=== PATIENT | female | born 1990 | race Caucasian/White ===

== ENCOUNTER 2016-05-18 18:44 | Outpatient (CLI) | payer OTHER ==
[~2016-05-18] VITALS: Ht 175.3 cm; Wt 125.2 kg
[~2016-05-18 18:44] MED LIST: ACET500C5 PO; CEPH-443 PO; PRENAT PO
[2016-05-18 18:47] VITALS: Ht 175.3 cm; Wt 125.2 kg
[2016-05-18 18:52] VITALS: BP 118/74; PULSE 85; RESP 18
--- NOTE | 2016-05-18 22:31 | TRIAGE ---
OB Triage Datetime Report Generated by CPN: 05/18/2016 22:31 Datetime: 05/18/2016 20:38 Pain Presence: None/Denies Pain Assessment Comments: PT. DENIES PAIN AT THIS TIME, ONLY COMPLAINS OF SLIGHT PELVIC PRESSURE Datetime: 05/18/2016 20:30 Labor Evaluation Frequency: OCCASIONAL Monitor Mode: External Duration (sec)2399: 60-80 Pattern: Normal: <= 5 Contractions in 10 Minutes Heart Rate FHR Baseline Rate: 145 Monitor Mode: External US FHR Baseline Changes: No Baseline Change Variability: Moderate 6-25 bpm Accelerations: 15X15 Decelerations: None Category: Category I Datetime: 05/18/2016 20:28 Stage of : OB Triage Datetime: 05/18/2016 19:30 Stage of : OB Triage Labor Evaluation Frequency: OCC Monitor Mode: External Duration (sec)2399: 90-100 Pattern: Normal: <= 5 Contractions in 10 Minutes Resting [place]one [place]: Relaxed Heart Rate FHR Baseline Rate: 140 Monitor Mode: External US Variability: Moderate 6-25 bpm Accelerations: 15X15 Decelerations: None Category: Category I Datetime: 05/18/2016 19:23 Vaginal Exam Dilatation (cms): 0.0 Effacement (%): 50 Station: -3 Exam By: MARILY Blanchard Membrane Status: Intact Vaginal Bleeding: None Cervix, Consistency: Soft Cervix, Position: Posterior Datetime: 05/18/2016 18:52 Stage of : OB Triage Assessment Type: Triage Maternal Assessment Level of Consciousness: Fully Conscious DTR's/Clonus: DTRs 2+; No Clonus Headache: Denies Blurred Vision: No Respiratory Effort: Unlabored; Regular Rhythm; Equal Expansion Breath Sounds, Left: Clear and Equal Breath Sounds, Right: Clear and Equal Nausea/Vomiting: Denies RUQ Epigastric Pain: Denies Facial Edema: None Temperature Route: Axillary Fall Risk Assessment History of Falling: (0) No Secondary Diagnosis: (0) No Ambulatory Aid: (0) Bedrest/Nurse Assist IV Therapy: (0) No Gait: (0) Normal/Bedrest/Immobile Mental Status: (0) Oriented to Own Ability Fall Score: 0 Fall Risk Score Definition: No Risk: No action required Labor Evaluation Frequency: 0 Monitor Mode: External Resting [place]one [place]: Relaxed Heart Rate FHR Baseline Rate: 145 Monitor Mode: External US Variability: Moderate 6-25 bpm Decelerations: None Category: Category I Pain Assessment Pain Scale: 6 Pain Presence: Intermittent Pain Type: Cramping; Contraction Pain Location: Abdomen Pain Goal: 3 Pain Relief Measures: Comfort Measures Datetime: 05/18/2016 18:50 Time of Arrival: 05/18/2016 18:39 EGA: 36.6 Arrived By: Ambulatory Arrived From: Home Chief Complaint: C/O UC'S SINCE 2PM TODAY. DENIES BLEEDING OR LEAKING OF FLUID Movement: Present Contractions: Irregular Rupture of Membranes: Denies Vaginal Bleeding: None Vaginal Discharge: Denies Recent Sexual Intercouse: Denies Abdominal Trauma: Not Applicable Patient Complaints: Contractions Time Provider Notified: 05/18/2016 20:28 Provider Notified: Initial Plan: MONITOR, VE
--- NOTE | 2016-05-19 02:31 | PN ---
Date/Time of Note Date/Time of Note DATE: 05/19/16 TIME: 02:28 OB Subjective Subjective Subjective 25 Year-old [id number] with SIUP at 36 6/7 wks presents with a chief complaint of UCS. She has been receiving her care with Dr. Caldwell. She states good movement. She denies nausea, vomiting, shortness of breath, chest pain, and abdominal pain between contractions, headache, visual changes, vaginal bleeding or LOF. OB Objective Objective Objective Physical Exam: General: Patient appears well, alert and oriented, NAD, appropriate mood and affect ABD: gravid, soft, non-tender. Back: No CVA tenderness (B/L) LE: No clubbing, cyanosis, edema, thigh or calf tenderness bilaterally FHT: 140 bpm , moderate variability with acceleration, no deceleration-category I Contractions: Occasional SVE: close/50/-3/ceph/intact membrane, no cx changes in repeat exam OB Assessment/Plan Other plan: 18 Year-old G1 with SIUP at 40 2/7 wks - FHR: No sign of metabolic acidosis- Category I - Continuous EFM, toco - Contractions: Occasional - Reactive NST. BPP: 10/10 - Symptoms and sign of labor, preeclampsia, kick count discussed with patient, she voiced understanding. All of her questions answered. Patient was discharged home in stable condition with the appropriate discharge instructions provided. I would like patient to have close follow-up with her primary Ob or outpatient clinic in 1-2 days or return to the ER for worsening symptoms or any other urgent concerns. MARCEL GALLOWAY May 19, 2016 02:31
== END 2016-05-18 20:45 | disposition home or self-care (01) ==
LOC: OBT 18:44 → L-D 18:46 → OBT 20:45
PROVIDERS: ATTEND Obstetrics & Gynecology
DX: O62.9 Abnormality of forces of labor, unspecified (principal); Z3A.36 36 weeks gestation of pregnancy
CPT/HCPCS: G0463

== ENCOUNTER 2016-06-12 10:58 | Inpatient (IN) | payer OTHER ==
[~2016-06-12] VITALS: Ht 175.3 cm; Wt 127.7 kg
[~2016-06-12 10:58] MED LIST changes: -ACET500C5 PO
[2016-06-12 11:11] VITALS: Ht 175.3 cm; Wt 127.7 kg
[2016-06-12 11:12] VITALS: BP 131/70; PULSE 71; RESP 18
[2016-06-12] MEDS ORDERED: LACTATED RINGER'S 1,000 ML IV SCH (11:25)
[2016-06-12] MEDS ORDERED: IBUPROFEN 600 MG TAB PO PRN (11:30)
[2016-06-12] MEDS ORDERED: OXYTOCIN 30 UNITS/LR 500 ML IV PRN (11:30)
[2016-06-12] MEDS ORDERED: CARBOPROST 250 MCG INJ IM PRN (11:30)
[2016-06-12] MEDS ORDERED: BUTORPHANOL 2 MG INJ IV PRN (11:30)
[2016-06-12] MEDS ORDERED: LACTATED RINGER'S 1,000 ML IV PRN (11:30)
[2016-06-12] MEDS ORDERED: MISOPROSTOL 200 MCG TAB PR PRN (11:30)
[2016-06-12] MEDS ORDERED: LIDOCAINE 1% (MPF) 30 ML INJ INJ PRN (11:30)
[2016-06-12] MEDS ORDERED: OXYTOCIN 30 UNITS/LR 500 ML IV SCH ×3 (11:30)
[2016-06-12] MEDS ORDERED: METHYLERGONOVINE 0.2 MG INJ IM PRN (11:30)
[2016-06-12 11:50] LABS: ADD SCAN DIFF NO
[2016-06-12 12:16] LABS: INR 0.91; PROTIME 12.3 Sec (12.2-14.2)
[2016-06-12 12:17] LABS: PARTIAL THROMBOPLASTIN TIME 31.9 Sec (25.0-35.0)
[2016-06-12 12:21] LABS: BASOPHILS % 0.4 % (0.0-2.0); EOSINOPHILS # 0.1 10^3/ul (0.0-0.5); EOSINOPHILS % 0.5 % (0.0-7.0); HEMATOCRIT 36.7 % (37.0-47.0); HEMOGLOBIN 12.1 g/dl (12.0-16.0); LYMPHOCYTES # 2.2 10^3/ul (0.8-2.9); LYMPHOCYTES % 21.4 % (15.0-51.0); MEAN PLATELET VOLUME 10.5 fl (7.4-10.4); MONOCYTE # 0.6 10^3/ul (0.3-0.9); NEUTROPHIL # 7.3 10^3/ul (1.6-7.5); NEUTROPHILS % 70.5 % (39.0-77.0); PLATELET COUNT 260 10^3/UL (140-415); RED BLOOD COUNT 4.32 10^6/ul (4.20-5.40); RED CELL DISTRIBUTION WIDTH 13.5 % (11.5-14.5); WHITE BLOOD COUNT 10.3 10^3/ul (4.8-10.8)
[2016-06-12] MEDS ORDERED: FENTAnyl 2MCG/ML-ROPIV 0.2% 100 ML ONE (12:47)
[2016-06-12] MEDS ORDERED: FENTAnyl 2MCG/ML-ROPIV 0.2% 100 ML BAG EPI SCH (14:30)
[2016-06-12] MEDS ORDERED: DIPHENHYDRAMINE 50 MG INJ IV PRN (14:30)
[2016-06-12] MEDS ORDERED: ONDANSETRON 4 MG INJ IV PRN ×2 (14:30→17:30)
[2016-06-12] MEDS ORDERED: NALOXONE (0.4 MG/ML) INJ IV PRN (14:30)
--- NOTE | 2016-06-12 16:07 | LDN ---
Date/Time of Note Date/Time of Note DATE: 06/12/16 TIME: 16:00 Delivery Summary OF A BABY BOY FROM [place] POSITION WITH NUCHAL CORD TIGHT AROUND THE BABY,S NECK#2 THICK MECONIUM COVERED BABY,S BODY PLACENTA SPONTANEOUS EXPULSION COVERED WITH THICK MECONIUM ,SEND TO PATHOLOGY , NO PERINEAL LACERATION, BLOOD LOSS 200ML Placenta Delivered: Spontaneously Meconium: Thick Perineum intact?: Yes Anesthesia type: Epidural Sponge & Needle done & correct: Yes All needle counts correct: Yes Any foreign bodies felt in the: No Problems: Infant Delivery Information Sex Infant Sex: male Apgars 1 Minute: 8 5 Minute: 9 Suctioning Nose & mouth suctioned at primo: Yes Delee suction performed: Yes Umbilical Cord Umbilical cord with: 3 Vessels Cord presentations: nuchal cord Cord Blood was obtained: Yes RANDELL PADILLA MD Jun 12, 2016 16:07
[2016-06-12] MEDS: OXYTOCIN 30 UNITS/LR 500 ML IV SCH ×2 (17:29→20:07)
[2016-06-12] MEDS ORDERED: DIBUCAINE 1% 30 GM OINT PR PRN (17:30)
[2016-06-12] MEDS ORDERED: BENZOCAINE 20% 56 ML SPRAY TOP PRN (17:30)
[2016-06-12] MEDS ORDERED: LANOLIN 7 GM TUBE TOP PRN (17:30)
[2016-06-12] MEDS ORDERED: ACETAMINOPHEN/CODEINE #3 TAB PO PRN ×2 (17:30)
[2016-06-12] MEDS ORDERED: ACETAMINOPHEN 325 MG TAB PO PRN (17:30)
[2016-06-12] MEDS ORDERED: WITCH HAZEL/GLYCERIN PAD PR PRN (17:30)
[2016-06-12] MEDS ORDERED: OXYCODONE/ASPIRIN (4.88/325) TAB PO PRN ×2 (17:30)
[2016-06-12 17:45] VITALS: BP 122/61; RESP 17
[2016-06-12 18:15] VITALS: BP 118/62; PULSE 66; RESP 18
[2016-06-12] MEDS: IBUPROFEN 600 MG TAB PO SCH (18:23)
[2016-06-12 19:40] VITALS: BP 123/57; PULSE 76; RESP 18
[2016-06-12] MEDS: SENNA/DOCUSATE NA (8.6MG/50MG) TAB PO SCH (20:08)
[2016-06-13] MEDS: IBUPROFEN 600 MG TAB PO SCH ×4 (00:02→17:29)
[2016-06-13 00:05] VITALS: BP 110/56; PULSE 78; RESP 18
[2016-06-13 04:20] VITALS: BP 106/55; RESP 44
[2016-06-13 07:57] LABS: ADD SCAN DIFF NO
[2016-06-13 08:02] LABS: BASOPHILS % 0.4 % (0.0-2.0); EOSINOPHILS # 0.1 10^3/ul (0.0-0.5); EOSINOPHILS % 0.7 % (0.0-7.0); HEMOGLOBIN 11.3 g/dl (12.0-16.0); LYMPHOCYTES # 2.6 10^3/ul (0.8-2.9); MEAN CORPUSCULAR HGB CONC 34.4 g/dl (32.0-37.0); MEAN CORPUSCULAR VOLUME 84.4 fl (82.0-101.0); MONOCYTE # 0.8 10^3/ul (0.3-0.9); MONOCYTES % 7.9 % (0.0-11.0); NEUTROPHIL # 6.2 10^3/ul (1.6-7.5); PLATELET COUNT 240 10^3/UL (140-440); RED BLOOD COUNT 3.91 10^6/ul (4.20-5.40); RED CELL DISTRIBUTION WIDTH 14.1 % (11.5-14.5); WHITE BLOOD COUNT 9.6 10^3/ul (4.8-10.8)
[2016-06-13 08:20] VITALS: BP 123/53; PULSE 68; RESP 18
[2016-06-13] MEDS ORDERED: INFLUENZA VIRUS VACCINE 0.5 ML (DISPENSING) IM* ONE (09:00)
[2016-06-13] MEDS: SENNA/DOCUSATE NA (8.6MG/50MG) TAB PO SCH ×2 (09:39→21:00)
--- NOTE | 2016-06-13 12:04 | HP ---
Date/Time of Note Date/Time of Note DATE: 06/13/16 TIME: 11:51 OB - History Hx of Present Free Text/Dictation 25 years old female 3 para 2 admitted to the hospital at 40 weeks and 3 days gestation in active labor admission pelvic examination complete cervical dilatation vertex presentation at +2 station meconium-stained amniotic fluid. Patient transferred to delivery room for delivery This patient has been under the care of of [facility] course was uneventful not complicated with gestational diabetes or -induced hypertension Past OB history To normal vaginal delivery Allergies denies allergies to any known medication Social habits denies smoking or drinking Review of system within normal Physical examination 5 feet 9 inches'294 Temperature 98.4 heart rate 67 respiration 18 and blood pressure 113/59 Head ears nose and throat negative Neck supple no thyromegaly Lungs clear to PNA Heart normal sinus rhythm no murmur Abdomen fundal height measures 37 cm symphysis pubis to the upper part of the fundus heart rate category 1 Pelvic examination Cervix completely dilated 100% effaced presenting part is vertex at 0 station Extremities no edema no varicositie Impression'intrauterine at term active labor Estimated Due Date: Jun 09, 2016 : 3 Para: 2 Care: Good Care Ultrasounds: Normal mid trimester US Obstetrical Complications: None Past Family/Social History * Past Medical, Surgical, Family and Obstetric Histories reviewed from chart. Rubella: immune RPR/VDRL: Negative GBS Status: Negative HBsAG: Negative OB Admission Exam Vital Signs Vital Signs Vital Signs Date Time Temp Pulse Resp B/P Pulse Ox O2 Delivery O2 Flow Rate FiO2 06/13/16 08:20 98.5 68 18 123/53 Room Air Physical Exam HEENT: WNL Lungs: Clear, Equal Extremities: Normal Cervical Dilatation: 10cm Effacement: 100% Station: 0 Membranes: Ruptured Amniotic Fluid: Thick Meconium Heart Rate: 130's Accelerations: Accelerations Present Decelerations: Early Decelerations Varibility: Moderate Contractions on Admission: < 5 Minutes Apart Intensity: Firm Last 72 hours Lab Results CBC & BMP 06/12/16 11:38 06/13/16 07:05 RANDELL PADILLA MD Jun 13, 2016 12:02
--- NOTE | 2016-06-13 12:08 | PN ---
Date/Time of Note Date/Time of Note DATE: 06/13/16 TIME: 12:07 OB Subjective Subjective Subjective day 1 Vital sign stable afebrile abdomen soft uterus firm lochia normal extremity normal Laboratory Tests Test 06/13/16 07:05 Basophils # 0.010^3/ul Basophils % 0.4% Blood Morphology Comment Eosinophils # 0.110^3/ul Eosinophils % 0.7% Hematocrit 33.0% Hemoglobin 11.3g/dl Lymphocytes # 2.610^3/ul Lymphocytes % 27.0% Mean Corpuscular Hemoglobin 29.0pg Mean Corpuscular Hemoglobin Concent 34.4g/dl Mean Corpuscular Volume 84.4fl Mean Platelet Volume 9.0fl Monocytes # 0.810^3/ul Monocytes % 7.9% Neutrophils # 6.210^3/ul Neutrophils % 64.0% Nucleated Red Blood Cells # 0.010^3/ul Nucleated Red Blood Cells % 0.0/100WBC Platelet Count 89298^3/UL Red Blood Count 3.9110^6/ul Red Cell Distribution Width 14.1% White Blood Count 9.610^3/ul Current Medications Medications (Trade) Dose Ordered Sig/Adelfo Route PRN Reason Start Time Stop Time Status Last Admin Dose Admin Lactated Ringer's 1,000 ml @ 125 mls/hr Q8H IV 06/12/16 11:25 06/12/16 17:36 DC 06/12/16 11:37 Oxytocin/Lactated Ringer's 500 ml @ 0 mls/hr TITRATE IV 06/12/16 11:30 06/12/16 17:36 DC Butorphanol Tartrate (Stadol) 2 mg Q2H PRN IV PAIN 06/12/16 11:30 06/12/16 17:36 DC Lidocaine 30 ml 30 ml ONCE PRN INJ EPISIOTOMY/TEARING 06/12/16 11:30 06/12/16 17:36 DC Oxytocin/Lactated Ringer's 500 ml @ 125 mls/hr ONCE -MAY REPEAT X1 IV 06/12/16 11:30 06/12/16 17:36 DC 06/12/16 16:01 Oxytocin/Lactated Ringer's 500 ml @ 125 mls/hr ONCE IV 06/12/16 11:30 06/12/16 17:36 DC 06/12/16 16:02 Ibuprofen 600 mg 600 mg ONCE PRN PO Mild Pain (Pain Score 1-3) 06/12/16 11:30 06/12/16 17:36 DC Lactated Ringer's 1,000 ml @ 2,000 mls/hr Q30M PRN IV PRE-EPIDURAL BOLUS 06/12/16 11:30 06/12/16 17:36 DC 06/12/16 12:45 Oxytocin/Lactated Ringer's 500 ml @ 0 mls/hr ONCE PRN IV For Hemorrhage Management 06/12/16 11:30 06/12/16 17:36 DC Methylergonovine Maleate (Methergine) 0.2 mg ONCE PRN IM VAGINAL BLEEDING 06/12/16 11:30 06/12/16 17:36 DC Carboprost Tromethamine (Hemabate) 250 mcg ONCE PRN IM VAGINAL BLEEDING 06/12/16 11:30 06/12/16 17:36 DC Misoprostol 1000 mcg 1,000 mcg ONCE PRN SC VAGINAL BLEEDING 06/12/16 11:30 06/12/16 17:36 DC Fentanyl/ Ropivacaine 100 ml @ ud STK-MED ONCE .ROUTE 06/12/16 12:47 06/12/16 12:48 DC Naloxone HCl (Narcan) 0.1 mg Q2M PRN IV FOR RESP RATE 8 OR LESS 06/12/16 14:30 06/12/16 17:36 DC Diphenhydramine HCl (Benadryl) 25 mg Q6H PRN IV ITCHING 06/12/16 14:30 06/12/16 17:36 DC Ondansetron HCl (Zofran Inj) 4 mg Q6H PRN IV NAUSEA AND/OR VOMITING 06/12/16 14:30 06/12/16 17:36 DC Fentanyl/ Ropivacaine 100 ml 100 ml EPIDURAL INFUSION EPI 06/12/16 14:30 06/12/16 17:36 DC Oxytocin/Lactated Ringer's 500 ml @ 125 mls/hr Q4H IV 06/12/16 17:29 06/13/16 01:28 DC 06/12/16 20:07 Ibuprofen (Motrin) 600 mg Q6 PO 06/12/16 18:00 06/13/16 00:02 Acetaminophen (Tylenol Tab) 650 mg Q4H PRN PO PAIN LEVEL 1-5 06/12/16 17:30 Acetaminophen/ Codeine Phosphate (Tylenol No.3) 1 tab Q4H PRN PO PAIN LEVEL 1-5 06/12/16 17:30 Acetaminophen/ Codeine Phosphate (Tylenol No.3) 2 tab Q4H PRN PO PAIN LEVEL 6-10 06/12/16 17:30 Oxycodone/Aspirin (Percodan) 1 tab Q3H PRN PO PAIN LEVEL 1-5 06/12/16 17:30 Oxycodone/Aspirin (Percodan) 2 tab Q3H PRN PO PAIN LEVEL 6-10 06/12/16 17:30 Ondansetron HCl (Zofran Inj) 4 mg Q6H PRN IV NAUSEA AND/OR VOMITING 06/12/16 17:30 Senna/Docusate Sodium (Senokot-S) 1 tab BID PO 06/12/16 21:00 06/13/16 09:39 Witch Regla/ Glycerin (Tucks Pads) 1 pad BEDSIDE MEDICATION PRN SC HEMORRHOID/EPISIOTMY PAIN 06/12/16 17:30 06/12/16 18:23 Benzocaine (Dermoplast [place]) 1 spray BEDSIDE MEDICATION PRN TOP HEMORRHOID/EPISIOTMY PAIN 06/12/16 17:30 06/12/16 18:23 Dibucaine (Nupercainal) 1 applic BEDSIDE MEDICATION PRN SC HEMORRHOID/EPISIOTMY PAIN 06/12/16 17:30 Lanolin (Pha-D-Ivmipa) 1 applic BEDSIDE MEDICATION PRN TOP BEDSIDE FOR LINUS TO NIPPLES 06/12/16 17:30 06/12/16 18:23 Measles/Mumps/ Rubella Vaccine Live (Mmr Ii Vaccine) 0.5 ml ONCE ONCE SC* 06/14/16 09:00 06/14/16 09:01 Influenza Virus Vaccine (Fluzone) 0.5 ml ONCE ONCE IM* 06/13/16 09:00 06/13/16 09:01 RANDELL PADILLA MD Jun 13, 2016 12:07
[2016-06-13 16:10] VITALS: BP 124/68; PULSE 78; RESP 18
[2016-06-14] MEDS: IBUPROFEN 600 MG TAB PO SCH ×3 (00:12→12:00)
[2016-06-14 04:00] VITALS: BP 106/61; RESP 18
[2016-06-14 08:00] VITALS: BP 127/68; PULSE 68; RESP 18
[2016-06-14] MEDS ORDERED: MEASLES,MUMPS,RUBELLA VACCINE INJ SC* ONE (09:00)
--- NOTE | 2016-06-14 12:37 | PD.PPDC ---
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
--- NOTE | 2016-06-14 12:41 | DS ---
Date/Time of Note Date/Time of Note DATE: 06/14/16 TIME: 12:38 Obstetrical Discharge Record Final Diagnosis Final Diagnosis: Term delivered Vaginal Delivery Obstetrical Delivery: Spontaneous Condition on Discharge Physical Assessment Last Vitals: Vital sign stable, abdomen soft uterus firm lochia normal extremity normal discharged home follow-up instructions to be seen at the clinic. Voiding: Yes Bowel Movement: Yes Breast: Filling Fundus: Firm Calf Tenderness: No Patient Condition: Good RANDELL PADILLA MD Jun 14, 2016 12:41
== END 2016-06-14 15:22 | disposition home or self-care (01) | DRG 775 ==
LOC: OBT 10:58 → L-D 11:00 → OBT 11:19 → L-D 11:24 → PP1 17:39
PROVIDERS: ADMIT Obstetrics & Gynecology; ATTEND Obstetrics & Gynecology
PROC: 10E0XZZ Delivery of Products of Conception, External Approach (ICD-10-PCS; principal; 2016-06-12)
DX: O69.81X0 Labor and delivery complicated by cord around neck, without compression, not applicable or unspecified (principal); Z68.41 Body mass index [BMI] 40.0-44.9, adult; O99.214 Obesity complicating childbirth; E66.01 Morbid (severe) obesity due to excess calories; Z3A.40 40 weeks gestation of pregnancy; Z37.0 Single live birth
CPT/HCPCS: 59025; 62319; 85025; 85610; 85730; 86592; 86900; 86901; 87340; 88307; 90686; 99464; A4310; G0463; J2590; J3010; J7120